=== PATIENT | female | born 1930 | race Caucasian/White ===

== ENCOUNTER → 2016-08-06 | Outpatient (CLI) | payer OTHER, MEDICARE ==
[~2016-08-06] VITALS: Ht 167.6 cm; Wt 89.2 kg
[~2016-08-06] MED LIST: ACETAMINOPHEN325 M1 PO; ALDACTONE25 MG PO; AMLODIPINE BESY10 MG PO; ANTIVERT25 MG PO; BENICAR PO; BENICAR20 MG PO; BYSTOLIC 5 MG5 M1 PO; CIPROFLOXACIN500 M1 PO; CLEOCIN HCL150 MG PO; COLAZAL750 M1 PO; DEMADEX10 MG PO; DEXILANT60 MG PO; DOXYCYCLINE 10100 MG PO; EDARBI40 MG PO; INDERAL LA120 M1 PO; INDERAL LA160 MG PO; LEVOTHYROXIN0.088 MG PO; LIPITOR10 MG PO; MACROBID 100 M100 M1 PO; MECLIZINE 25 MG25 M1 PO; MEPROBAMATE 40400 MG PO; MOTION RELIEF25 MG PO; NORCO 5-325 TA1 EACH PO; NORVASC10 MG PO; NORVASC5 MG PO; OMEGA-3 + VITA1 EAC1 PO; OMEPRAZOLE PO; PROBIOTIC1 EACH PO; SYNTHROID100 MCG PO; SYNTHROID125 MCG PO; SYNTHROID75 MCG PO; TRIBENZOR 40-11 EAC1 PO; TYLENOL325 MG PO; VALIUM5 MG PO; VANTIN PO; XANAX 0.25 MG0.25 MG PO; ZOFRAN4 MG PO; [UNRECOGNIZED DRUG - CODE] GT; [UNRECOGNIZED DRUG - OTHER]; [UNRECOGNIZED DRUG - OTHER] PO
--- NOTE | ~2016-08-06 | H ---
[facility] [place] [address] HISTORY AND PHYSICAL Name: JACOB CHAWLA Nimo Room #: REG MARYSEHeladio Wang#: [id number] Admission: 08/06/16 Attend Phys: David Jiménez MD Discharge: Date of : 32 Report #: [id number] THIS REPORT FOR: //name// CC: Jose M Jiménez DATE OF SERVICE: 08/06/2016 REASON FOR VISIT: Followup visit for a right lumbar radiculopathy. The patient returns to pain clinic today, would like to have transforaminal injection. She has reported once again, that she has had over 90% pain relief for over 3 months. The pain is now returning in the L4-L5 distribution. Chart reflection shows that she has had intermittent transforaminal epidural injections dating back through 2006. She has always responded. She has never had an injection, where she says her pain relief is not measured in months. This has allowed her to avoid stronger pain medication, which she is appreciative of. We spent some time today counseling a bit. Her has senile dementia. Still recognizes family, but his short-term memory is really poor. He recently went up to [facility] to have his hip replaced and is now in $7000 per month, apartment rehabilitation. She has supportive family, but is very difficult to watch her of 60 years, go through these end of life changes. He is not dying, but he is certainly suffering with some of the difficult problems of aging, and this is hard for her. MEDICATIONS: Reviewed and reconciled. There have been no changes since last visit. She is not on a blood thinner. On physical exam, she cried a little bit today and was emotional during our discussion. Her blood pressure is 159/98, heart rate is 73, respirations are 14. She walks with mild antalgic features and has a straight leg raising pain, following the L4-L5 distribution on the right. IMPRESSION: 1. Chronic intractable low back pain with radiculopathy, right L4-L5 distribution. 2. Situational depression. PLAN: Transforaminal epidural injection at L4-L5 on the right under fluoroscopic guidance. PROCEDURE NOTE: He was taken to the fluoroscopic suite, placed prone, skin prepped with chloraprep. Skin was anesthetized over the L4-L5 neural foramen. [address] [address] HISTORY AND PHYSICAL Name: JACOB CHAWLA Nimo Room #: REG CLHeladio Wang#: [id number] Admission: 08/06/16 Attend Phys: David Jiménez MD Discharge: Date of : 32 Report #: [id number] Using the triplanar fluoroscopic views, I advanced the needle into the neural foramen. 1 mL of Omnipaque was demonstrating an excellent epidurogram and spread of the dye along the L4 nerve root, then followed by 3 mL of 0.5% lidocaine, mixed with 80 mg of triamcinolone. She tolerated the procedure well and was observed for 45 minutes and discharged. Followup visit planned as needed. By: 1316 1434 David Jiménez MD /nt
[2016-08-06 12:35] VITALS: BP 159/98
== END ==
LOC: PAIN 06:34
DX: M54.16 Radiculopathy, lumbar region (principal); G89.29 Other chronic pain; F32.9 Major depressive disorder, single episode, unspecified

== ENCOUNTER 2016-10-08 10:01 | Inpatient (IN) | payer OTHER, MEDICARE ==
[~2016-10-08] VITALS: Ht 172.7 cm; Wt 87.6 kg
--- NOTE | ~2016-10-08 | EKG ---
[address] [place] [address] ELECTROCARDIOGRAM REPORT Name: JACOB CHAWLA Room #: 212-P ADM IN M.R.#: [id number] Admission: 10/08/16 Attend Phys: Thomas Lainez DO Discharge: Date of : 32 Report #: [id number] THIS REPORT FOR: //name// [facility] ED Test Date: 2016-10-08 Test Time: 10:16:10 Pat Name: JACOB CHAWLA Department: Room: [facility] Gender: F Leaflet Distributor: DANIEL : 1930 Requested By: See Brown Order Number: [id number] MD: Dallas ePng Measurements Intervals [place] Rate: 73 P: 49 FL: 184 QRS: -45 QRSD: 152 T: 128 QT: 425 QTc: 469 Interpretive Statements Sinus rhythm Left bundle branch block Compared to ECG 10/03/2016 20:48:46 Left bundle-branch block now present Electronically Signed On 10-10-2016 7:06:34 CDT by Dallas Peng [email or web address] <ELECTRONICALLY SIGNED> By: Dallas Peng MD, [facility] 10/10/16 0706 1016 1016 Dallas Peng MD, [facility] /EPI
--- NOTE | ~2016-10-08 | HC ---
[facility] [place] [address] CONSULTATION Name: JACOB CHAWLA Room #: 212-P ADM IN M.R.#: [id number] Admission: 10/08/16 Attend Phys: Thomas Lainez DO Discharge: Date of : 32 Report #: [id number] THIS REPORT FOR: //name// CC: Thomas Caldwell DATE OF SERVICE: 10/08/2016 HISTORY OF PRESENT ILLNESS: The patient is an 86-year-old female admitted for some recurrent vertigo, weakness, dizziness. She has had this intermittently. This even had been seen by [facility] before and has had exercises for this, but apparently became worse over the weekend. I had increased her Benicar from 20-40 when I saw her a week ago. She has an old left bundle-branch block, but for some reason was under the assumption that this was a new left bundle, this has been previously documented clearly in the records and in my office. She has had a recent echo Doppler that was done in July of this year. Ejection fraction was normal. PA pressure was 35, mild MR and TR. Normal atrial size. She had carotid Dopplers done here today, which did not show any evidence of significant disease and in fact also had an MRI of her head. She is really voicing minimal complaints tonight. There has been no associated chest pain or shortness of breath. The MRI shows nothing acute and chronic small vessel ischemic changes with some progression. Chest x-ray was also relatively unremarkable. LABORATORY DATA: Sodium 135, potassium 3.7, creatinine 0.9, glucose 120. Troponin is negative and there is no way we should be doing serial troponins here. There is no evidence of complaints of chest pain. We will cancel the last troponin. H and H was 13 and 38, white count 3.8, platelets 172. Keep referencing the new left bundle, I want to clarify there was not a new bundle. SOCIAL HISTORY: She lives independently. No current alcohol or tobacco. She has six children. ALLERGIES: ASPIRIN, CIPRO, BACTRIM, OXYCODONE, PROCHLORAZINE, CODEINE, MORPHINE, COMPAZINE, FEXOFENADINE. PAST MEDICAL HISTORY: Positive for hypertension, hypercholesterolemia, strep pneumo, history of migraines, prior colon cancer, appendectomy, knee surgery, hysterectomy, thyroidectomy. FAMILY HISTORY: Mother had a stroke. Sister with ovarian cancer and another sister with lung cancer. REVIEW OF SYSTEMS: Essentially negative except for stated above. HOME MEDICATIONS: Xanax, amlodipine 5 b.i.d., atorvastatin 10, , Dexilant, [address] [address] CONSULTATION Name: CHAWLANOEJACOB Room #: 212-P [facility] IN M.R.#: [id number] Admission: 10/08/16 Attend Phys: Thomas Lainez DO Discharge: Date of : 32 Report #: [id number] diazepam, Synthroid, Benicar 20 recently increased to 40, now back down to 25. PHYSICAL EXAMINATION: VITAL SIGNS: Pulse is currently 60, blood pressure 140/76. HEENT: Eyes reveal xanthelasmas. There is some mild arcus senilis. Pharynx is clear. NECK: Shows preserved upstrokes without JVD or bruits. LUNGS: Clear. CARDIOVASCULAR: Regular rate and rhythm, S1, S2. Split second heart sound, faint holosystolic murmur. ABDOMEN: Soft. No HSM or abdominal bruit. EXTREMITIES: Reveal trace of edema. Pulses diminished. NEUROLOGIC: Nonfocal. SKIN: Warm and dry without xanthoma or ulcer. MUSCULOSKELETAL: No gross joint deformity, generalized valgus deformity of the knees. ASSESSMENT: 1. Recurrent vertigo. 2. Generalized weakness. 3. Hypertension. 4. Hypercholesterolemia. RECOMMENDATIONS AND PLAN: The carotid Doppler is negative. MRI is not showing any new finding. She is in sinus rhythm with left bundle-branch block. This is previously noted. There is no ischemic event here. The troponins are negative x2 or 3. We will discontinue any further troponins. A recent echo was done. I do not recommend any current cardiovascular testing. We will hold on Benicar and cut the amlodipine to 5, let this blood pressure trend higher and see if she feels better, although I think it is not related to her Benicar dosage. But, I would accept 140-150 systolic in the setting and going forward. I do not recommend any further cardiovascular testing. Hopefully, we can get her up and get some exercises perhaps Erika maneuver for the vertigo and continue to keep her moving. We will follow with you, does not appear to be any overt infection or heart failure issues here. Thank you for allowing us to assist in her care. By: 2246 [id number] Carlos Enrique Siu MD, FACC /nt
--- NOTE | ~2016-10-08 | HC ---
[facility] [place] [address] CONSULTATION Name: JACOB CHAWLA Room #: 212-P ADM IN M.R.#: [id number] Admission: 10/08/16 Attend Phys: Thomas Lainez DO Discharge: Date of : 32 Report #: [id number] THIS REPORT FOR: //name// CC: Thomas Caldwell MD GASTROENTEROLOGY CONSULTATION REASON FOR CONSULTATION: The patient is an 86-year-old woman who was admitted with dizziness, but has a history of colon cancer and ulcerative colitis. HISTORY OF PRESENT ILLNESS: This 86-year-old woman was admitted on this occasion with nausea and dizziness and she is currently undergoing evaluation and treatment for those problems. She does have a history of colitis. She knows very few details, but she has been on for many years. She reports that she generally as well have diarrhea or rectal bleeding and actually has more problems with constipation. She does take laxatives from time to time. In addition, there is a history of colon cancer. Her last colonoscopy was several years ago. She sees Dr. Salomón Rosario and was told that this October, she would need a followup colonoscopy. PAST MEDICAL HISTORY: Ulcerative colitis. I do not know the extent of her disease, although there is an old note in the computer that mentions a proctitis. She has hypothyroidism, on thyroid replacement. She has had nausea and dizziness in the past. She has been treated for orthostatic hypotension. She has been treated for elevated lipids and high blood pressure. She has been treated for reflux with Dexilant, which has done a good job for her. PAST SURGICAL HISTORY: She had colon resection 60 years ago for bleeding. She had a previous hysterectomy, a colon cancer surgery and also has had knee surgery and breast biopsy. ALLERGIES: Extensive and include ASPIRIN, CIPROFLOXACIN, CEFPODOXIME, FEXOFENADINE, MESALAMINE, AUGMENTIN, TRIMETHOPRIM, AMOXICILLIN, METOCLOPRAMIDE, OXYCODONE, PROCHLORPERAZINE, PROMETHAZINE, TRAMADOL, CODEINE, MORPHINE and SULFAMETHOXAZOLE. MEDICATIONS: Usual home medicines include acetaminophen, amlodipine, atorvastatin, balsalazide, dexlansoprazole which is Dexilant, levothyroxine, meclizine and olmesartan. FAMILY HISTORY: Sister had brain cancer, another sister had ovarian cancer colon cancer. [address] [address] CONSULTATION Name: JACOB CHAWLA Room #: 212-P [facility] IN .R.#: [id number] Admission: 10/08/16 Attend Phys: Thomas Lainez DO Discharge: Date of : 32 Report #: [id number] SOCIAL HISTORY: Does not smoke and does not use much alcohol. REVIEW OF SYSTEMS: GENERAL: No change in weight, fever or chills. CENTRAL NERVOUS SYSTEM: Recent dizziness, vertigo and nausea. ENT: No change in vision or hearing. No sores in the mouth. PULMONARY: No cough, pneumonia or tuberculosis. CARDIOVASCULAR: No chest pain, chest tightness or palpitations. She was treated for high blood pressure. GASTROINTESTINAL: Nausea, not vomiting, constipation and colitis. GENITOURINARY: Without dysuria or pyuria. GYNECOLOGIC: Breast biopsy for benign lesion and previous hysterectomy. MUSCULOSKELETAL: Back pain. She was seen in the pain clinic. SKIN: Without rashes. PSYCHIATRIC: No depression, anxiety or bipolar illness. ENDOCRINE: She is treated for thyroid disease. HEMATOLOGIC: Colon cancer. PHYSICAL EXAMINATION: GENERAL: Well-developed, well-nourished, obese woman in no acute distress. She looks uncomfortable from her nausea. VITAL SIGNS: Blood pressure 147/80. HEENT: Anicteric. Pupils equal and round. Oropharynx is clear. NECK: Supple. CHEST: Clear. HEART: Regular rate and rhythm. Normal S1 and S2. ABDOMEN: Obese. Normal bowel sounds. Soft and nontender, without hepatosplenomegaly or masses. RECTAL: Not done. EXTREMITIES: With trace bilateral pedal edema. NEUROLOGIC: Oriented to person, place and time. Moves all 4 extremities well. LABORATORY DATA: White count of 5.2, hemoglobin of 12.3, MCV 89 and platelet count 165,000. Electrolytes unremarkable. LFTs are normal. Albumin 3.4. ASSESSMENT: 1. History of colon cancer. 2. Chronic colitis. 3. Nausea. 4. Vertigo. 5. High blood pressure. 6. Hypothyroidism. 7. Constipation. COMMENT: Discussed with the patient. I agree with the role of colonoscopy. However, this can be done as an outpatient after she has been treated for [address] [address] CONSULTATION Name: JACOB CHAWLA Room #: 212-P [facility] IN M.R.#: [id number] Admission: 10/08/16 Attend Phys: Thomas Lainez DO Discharge: Date of : 32 Report #: [id number] vertigo. RECOMMENDATIONS: 1. Colonoscopy can be done as an outpatient. 2. MiraLax for constipation. 3. If she develops specific symptoms such as diarrhea or rectal bleeding, colonoscopy could be completed for these symptoms while in the hospital. <ELECTRONICALLY SIGNED> By: Jose M Gómez MD 10/09/16 1544 1332 1414 Jose M Gómez MD /nt
--- NOTE | ~2016-10-08 | S ---
[facility] [place] [address] SURGICAL PATH RPT PROCEDURE Name: NU CRENSHAW Room #: 212-P DIS IN M.R.#: [id number] Admission: 10/08/16 Date of : 32 Discharge: 10/10/16 Report #: [id number] Path Case #: [id number] PATHOLOGY REPORT COLLECTION DATE: 10/10/2016 RECEIVED DATE: 10/10/2016 SUBMITTING PHYS: Dr. Eugenie Sandoval OTHER PHYS: Dr. Thomas Caldwell SPECIMEN(S) RECEIVED: A.Random colon bx at 70 cm B.Bx of polyp at 65 cm C.Random colon bx at 20 cm * * * * * * * * * * * * FINAL DIAGNOSIS: A. Large intestine, random at 70 cm, endoscopic biopsy: - Quiescent colitis, history of colitis. - Negative for dysplasia or malignancy. B. Polyp, at 65 cm, endoscopic biopsy: - Tubular adenoma. - Negative for high-grade dysplasia. C. Large intestine, random at 20 cm, endoscopic biopsy: - Mild focal active cryptitis along with reactive changes, history of colitis. (please see comment) - Negative for dysplasia or malignancy. COMMENT: Examination of the "random colon at 20 cm" biopsy tissue shows numerous macrophages within the lamina propria along with an increased cellularity which includes lymphocytes, plasma cells, as well as rare eosinophil. An occasional focus of cryptitis is present. There are no crypt abscesses, foci of surface epithelial inflammation or ulceration or granulomata identified. Occasional crypts show branching as well as hyperplastic changes consistent with reactive changes. The provided history of colitis is noted. Overall, findings are suggestive of a resolving mild chronic active colitis. There is no dysplasia or malignancy present. (IUV:mgr; 10/12/2016) PATHOLOGIST: Shruthi Cadena M.D. REPORT ELECTRONICALLY SIGNED BY: Shruthi Cadena M.D. DATE/TIME: 10/12/2016 14:29 * * * * * * * * * * * * [address] [address] SURGICAL PATH RPT PROCEDURE Name: NU CRENSHAW Room #: 212-P [facility] IN M.R.#: [id number] Admission: 10/08/16 Date of : 32 Discharge: 10/10/16 Report #: [id number] Path Case #: [id number] GROSS PATHOLOGY: A. Received in formalin labeled "Nu Crenshaw random BX at 70 cm," are 2 segments of juárez soft tissue measuring 0.9 x 0.2 x 0.2 cm in aggregate dimensions and ranging from 0.4 to 0.5 cm in maximum dimension. The specimen is submitted entirely in cassette A1. B. Received in formalin labeled "Nu Crenshaw BX of polyp at 65 cm," is a segment of juárez soft tissue measuring 0.3 x 0.2 x 0.2 cm in maximum dimension. The specimen is submitted entirely in cassette B1. C. Received in formalin labeled "Nu Crenshaw R, random colon BX at 20 cm," are 2 segments of juárez soft tissue measuring 0.7 x 0.2 x 0.2 cm in aggregate dimensions and ranging from 0.3 to 0.4 cm in maximum dimension. The specimen is submitted entirely in cassette C1. (JUAN; 10/11/2016) CLINICAL HISTORY: History of cancer, colitis INITIAL CPT CODE(S): A; 38795 B; 42887 C; 92185 Professional services performed by [facility] at [facility] [address], [place] [address] Technical services performed by [facility] at [address] [place] [address], [address], [place] [address]. [facility] [address] [place] [address] PHONE: [phone] DIRECTOR: Harvinder Joshi M.D. * * * END OF REPORT * * *
[2016-10-08 10:03] VITALS: BP 152/84
[2016-10-08 10:42] LABS: ABSOLUTE NEUTROPHILS 2.5 thou/uL (1.4-8.2); BASOPHILS 0.5 % (0.0-2.0); EOSINOPHILS 0.3 % (0.0-3.0); HEMATOCRIT 38.2 % (37.0-47.0); HEMOGLOBIN 13.3 gm/dL (12.0-15.0); LYMPHOCYTES 22.6 % (24.0-44.0); MANUAL DIFF NO; MCH 31.3 pg (26.0-34.0); MCHC 34.7 g/dL (28.0-37.0); MCV 90.2 fL (80.0-100.0); MONOCYTES 8.9 % (1.0-8.0); PLATELET COUNT 172 thou/uL (150-400); POLYS 67.7 % (36.0-66.0); RBC 4.23 mil/uL (4.20-5.00); RDW 15.2 % (10.5-14.5); WBC 3.8 thou/uL (4.0-11.0)
[2016-10-08 10:54] LABS: ANION GAP 11 mmol/L (7-16); BUN 12 mg/dL (7-18); CALCIUM 9.3 mg/dL (8.5-10.1); CHLORIDE 100 mmol/L (98-107); CO2 24 mmol/L (21-32); CREATININE 0.9 mg/dL (0.6-1.0); GLUCOSE 120 mg/dL (74-106); POTASSIUM 3.7 mmol/L (3.5-5.1); SODIUM 135 mmol/L (136-145)
[2016-10-08 10:55] LABS: URINE BILIRUBIN NEGATIVE (Negative); URINE BLOOD NEGATIVE (Negative); URINE COLOR YELLOW; URINE GLUCOSE-RANDOM* NEGATIVE (Negative); URINE KETONES NEGATIVE (Negative); URINE NITRITE NEGATIVE (Negative); URINE PROTEIN (DIPSTICK) NEGATIVE (Negative); URINE SPECIFIC GRAVITY <= 1.005 (1.003-1.035); URINE UROBILINOGEN 0.2 E.U./dl (0.2-1.0)
[2016-10-08 11:06] LABS: NT-PRO BRAIN NAT PEPTIDE 71 pg/mL (<300); TROPONIN-I < 0.04 ng/mL (<0.04-0.07)
[2016-10-08 13:51] VITALS: BP 179/73
[2016-10-08 16:15] VITALS: BP 190/120
[2016-10-08 18:39] VITALS: BP 124/64
[2016-10-08 20:29] VITALS: BP 143/76
[2016-10-09] VITALS (8 sets, daily range): BP systolic 115–155; BP diastolic 60–80
[2016-10-09 03:46] LABS: HEMATOCRIT 34.3 % (37.0-47.0); HEMOGLOBIN 12.3 gm/dL (12.0-15.0); MCH 32.2 pg (26.0-34.0); MCHC 35.9 g/dL (28.0-37.0); MCV 89.5 fL (80.0-100.0); RBC 3.83 mil/uL (4.20-5.00); RDW 14.9 % (10.5-14.5); WBC 5.2 thou/uL (4.0-11.0)
[2016-10-09 03:54] LABS: ALBUMIN 3.4 g/dL (3.4-5.0); CALCIUM 8.4 mg/dL (8.5-10.1); TOTAL BILIRUBIN 0.5 mg/dL (<0.1-1.0); TOTAL PROTEIN 6.4 g/dL (6.4-8.2)
[2016-10-10 03:35] VITALS: BP 119/64
[2016-10-10 07:10] VITALS: BP 158/74
[2016-10-10 11:25] VITALS: BP 137/80
[2016-10-10 15:31] VITALS: BP 107/65
[2016-10-10] MEDS ORDERED: ANTIVERT25 MG PO (15:33)
[2016-10-10] MEDS ORDERED: ONDANSETRON HCL4 M2 PO (15:34)
[2016-10-10 16:55] VITALS: BP 107/65
== END 2016-10-10 18:00 | disposition home or self-care (01) | DRG 149 ==
LOC: ER 10:01 → EROBS 11:21 → 2N 11:21
PROVIDERS: Nurse Practitioner
PROC: 0DBN8ZX Excision of Sigmoid Colon, Via Natural or Artificial Opening Endoscopic, Diagnostic (ICD-10-PCS; principal; 2016-10-10)
PROC: 0DBK8ZX Excision of Ascending Colon, Via Natural or Artificial Opening Endoscopic, Diagnostic (ICD-10-PCS; principal; 2016-10-10)
PROC: 0DBL8ZX Excision of Transverse Colon, Via Natural or Artificial Opening Endoscopic, Diagnostic (ICD-10-PCS; principal; 2016-10-10)
DX: R42 Dizziness and giddiness (principal); I44.7 Left bundle-branch block, unspecified; K57.30 Diverticulosis of large intestine without perforation or abscess without bleeding; D12.3 Benign neoplasm of transverse colon; K52.9 Noninfective gastroenteritis and colitis, unspecified; K59.00 Constipation, unspecified; G43.909 Migraine, unspecified, not intractable, without status migrainosus; I10 Essential (primary) hypertension; E78.00 Pure hypercholesterolemia, unspecified; E89.0 Postprocedural hypothyroidism; K21.9 Gastro-esophageal reflux disease without esophagitis; E66.9 Obesity, unspecified; Z68.29 Body mass index [BMI] 29.0-29.9, adult; Z85.038 Personal history of other malignant neoplasm of large intestine; Z90.49 Acquired absence of other specified parts of digestive tract; Z90.710 Acquired absence of both cervix and uterus; Z88.6 Allergy status to analgesic agent; Z88.1 Allergy status to other antibiotic agents; Z88.5 Allergy status to narcotic agent; Z88.2 Allergy status to sulfonamides; Z88.8 Allergy status to other drugs, medicaments and biological substances; Z82.3 Family history of stroke; Z80.41 Family history of malignant neoplasm of ovary; Z80.1 Family history of malignant neoplasm of trachea, bronchus and lung
CPT/HCPCS: 10081; 62110; 62900; 70005

== ENCOUNTER → 2017-03-14 | Outpatient (CLI) | payer OTHER, MEDICARE ==
[~2017-03-14] VITALS: Ht 167.6 cm; Wt 82.6 kg
[~2017-03-14] MED LIST changes: +LIALDA1.2 GM PO; +ONDANSETRON HCL4 M2 PO; +PRILOSEC 20 MG20 MG PO
--- NOTE | ~2017-03-14 | HPC ---
[facility] [address] [address] PAIN MANAGEMENT CONSULTATION Name: JACOB CHAWLA Room #: REG JESSIE Felipe#: [id number] Admission: 03/14/17 Attend Phys: David Jiménez MD Discharge: Date of : 32 Report #: [id number] THIS REPORT FOR: //name// CC: [facility] physician/PCP MARY Jiménez DATE OF SERVICE: 03/14/2017 Followup visit for lumbar radiculopathy on the right. The patient is here today for a transforaminal epidural injection. She has had these injections on several occasions always receiving months of good pain relief. She was hospitalized this fall. She lost significant amount of weight, has been able to maintain it. Her social life is now built around caring for her and living at the [facility]. She has support of her daughters. One of her daughters is with her today. She reports that she is able to do almost all of her activities of daily living. Pain is generally reduced by about 90%. PQRS documentation: She has some osteoarthritis, particularly in her hips and knees and would like knee injections in the future. Her BMI today was noted at 29.4. She will be watching her diet carefully after her current weight loss. All medications reviewed and reconciled. Her pain today in the clinic is 4-5/10 and will be treated today with epidural injection. She is not considered a fall risk. She does not use tobacco or alcohol. She is following at the [facility] and they manage medications to treat hypertension. PHYSICAL EXAMINATION: She appears more slender, pleasant, alert and oriented, without signs of overmedication. Blood pressure is 179/84, heart rate is 68. She is able to move from sitting to standing position and ambulate without difficulty. She has positive straight leg raising on the right following an L4 distribution. IMPRESSION: Lumbar radiculopathy, L4-L5 on the right. PROCEDURE: Transforaminal epidural injection under fluoroscopic guidance. She proceed, she was taken to fluoroscopic suite, placed prone, skin prepped with ChloraPrep. Skin was anesthetized over the L4-L5 neural foramen. Using triplanar fluoroscopic views, I advanced needle into the neural foramen. No blood or CSF was aspirated. A mL of Omnipaque demonstrated an excellent epidurogram followed by 3 mL of 0.5% lidocaine mixed with 80 mg triamcinolone. [address] [address] PAIN MANAGEMENT CONSULTATION Name: JACOB CHAWLA Room #: REG CL Felipe#: [id number] Admission: 03/14/17 Attend Phys: David Jiménez MD Discharge: Date of : 32 Report #: [id number] She tolerated the procedure well and was observed for 45 minutes and discharged. Follow up as needed. By: 1602 0347 David Jiménez MD /ana
[2017-03-14 10:43] VITALS: BP 173/96
== END | disposition home or self-care (01) ==
LOC: PAIN 06:47
DX: M54.16 Radiculopathy, lumbar region (principal); G89.29 Other chronic pain; Z98.890 Other specified postprocedural states; Z88.2 Allergy status to sulfonamides; Z88.8 Allergy status to other drugs, medicaments and biological substances; Z79.899 Other long term (current) drug therapy

== ENCOUNTER → 2017-04-09 | Outpatient (CLI) | payer OTHER, MEDICARE | LOC: RAD 03:45 | DX: Z12.31 Encounter for screening mammogram for malignant neoplasm of breast (principal) ==

== ENCOUNTER → 2018-02-13 | Outpatient (CLI) | payer OTHER, MEDICARE ==
[~2018-02-13] VITALS: Ht 167.6 cm; Wt 82.4 kg
[~2018-02-13] MED LIST changes: +CULTURELLE1 EACH PO; +ELIQUIS2.5 MG PO; +ESCITALOPRAM OXA5 MG PO; +METOPROLOL TART25 MG PO; +UNICOMPLEX M TA1 TA1 PO
--- NOTE | ~2018-02-13 | HPC ---
[facility] [place] [address] PAIN MANAGEMENT CONSULTATION Name: JACOB CHAWLA Room #: REG MARYSEHeladio Wang#: [id number] Admission: 02/13/18 Attend Phys: David Jiménez MD Discharge: Date of : 32 Report #: [id number] THIS REPORT FOR: //name// CC: FERNANDA Jiménez DATE OF SERVICE: 02/13/2018 CHIEF COMPLAINT: Followup visit for chronic low back pain with radiculopathy. I last saw the patient on 03/14/2017. I had previously seen her at roughly 6-month intervals for treatment of right lumbar radiculopathy and she responded beautifully to transforaminal injections at L4-L5. It has been a very challenging and difficult year. She reports that in the first part of 2018, she developed problems, but she is a bit vague on the timing. It is clear that she was in and out of the hospital for C. diff due to the use of an antibiotic, but I could not understand exactly when the antibiotics were started and for what. Around that time, she was also found to be more fatigued and saw a general forecaster. She was started on amiodarone, presumably for heart failure. Much of this was done at the [facility]. She there began seeing Dr. Fernanda Oquendo in their Gerontology Department and Dr. Oquendo is now her primary care physician. She has also been seen by Dr. Woods at [facility], the [facility] at . Dr. Abel Olivarez remains a confident and long time hospice consultant for Neurology. Her life has changed a bit. She moved from their previous apartment in the [facility] to [facility]. Her has moderate staged dementia and has been admitted to a memory care unit. She lives just above independent care. She sees him daily, but this has obviously been hardship to her. She is now on Eliquis, it was not discontinued today, so she cannot have an injection. I could not clearly understand whether she was on this for coronary artery disease or other issues. She is in a sinus rhythm today. She complains of pain in her back at a level of 3-4, it is as before radiating into the right leg consistent with a lumbar radiculopathy. This has always responded very well to a single transforaminal epidural injection, no more than 2 times per year. PQRS review shows a history of osteoarthritis in hips and knees. She has a BMI of 29.3. Pain intensity is 3-4/10. She is not a fall risk. She is on Eliquis, the blood thinner. She is under treatment for hypertension. She is not on an opioid agreement, nor has she completed an opioid risk tool. She does not smoke. She drinks alcohol socially with family and friends on occasion. [address] [address] PAIN MANAGEMENT CONSULTATION Name: CHAWLANOEJACOBCHENG GOMEZ Room #: REG JESSIE Wang#: [id number] Admission: 02/13/18 Attend Phys: David Jiménez MD Discharge: Date of : 32 Report #: [id number] PHYSICAL EXAMINATION: Blood pressure 138/72, heart rate 69, respirations 16. She has some bruising on her arm, presumably from the Eliquis. These do not appear to be large or worrisome. She is a bit forgetful, more so than I remember just a year ago. She moves from sitting to standing position, ambulates independently, but appears to be a little bit unstable. She does not; however, appear to be a fall risk. Examination of the back reveals mild tenderness, pain with forward flexion and extension. Straight leg raising discomfort on the right. IMPRESSION: Chronic intractable low back pain with radiculopathy. This has always responded well to an L4-L5 transforaminal epidural injection. PLAN: We will schedule her for my followup clinic in a week to 10 days to give her an injection before [place]. She will check with her general forecaster at [facility] before going off of the Eliquis to make sure that they approve. She needs to be off for 3 days prior to the injection. Time of followup visit 25 minutes. By: 1549 2211 David Jiménez MD /nt
[2018-02-13 11:24] VITALS: BP 138/72
== END ==
LOC: PAIN 09:25
DX: M17.0 Bilateral primary osteoarthritis of knee (principal); M54.16 Radiculopathy, lumbar region; M25.461 Effusion, right knee; M25.462 Effusion, left knee; G89.4 Chronic pain syndrome; M25.862 Other specified joint disorders, left knee; M25.861 Other specified joint disorders, right knee

== ENCOUNTER → 2018-02-27 | Outpatient (CLI) | payer OTHER, MEDICARE ==
[~2018-02-27] VITALS: Ht 167.6 cm; Wt 81.7 kg
--- NOTE | ~2018-02-27 | HPC ---
[address] [address] PAIN MANAGEMENT CONSULTATION Name: JACOB CHAWLA Room #: REG JESSIE Wang#: [id number] Admission: 02/27/18 Attend Phys: David Jiménez MD Discharge: Date of : 34 Report #: [id number] THIS REPORT FOR: //name// CC: ALFIE Jiménez DATE OF SERVICE: 02/27/2018 CHIEF COMPLAINT: Followup visit for chronic low back pain with radiculopathy. The patient is here today in the pain clinic for an epidural injection. Pain is bilateral today and it follows an L3-L4 distribution. She has previously had excellent response with transforaminal epidural injection on the right. I told her that today we would split the medication half of it going to the right and half of it going to the left using a transforaminal approach once again at L3-L4. She is here today with her daughter. She was just recently in the office on 02/13/2018. There have been no significant changes since that visit. She does complain a bit today of bilateral knee pain. She was seen by Family Medicine Department at and received bilateral knee injections performed without imaging or ultrasound. She did not receive much benefit. I told her that if necessary in the future, I would be glad to provide the injections for her as she had requested. IMPRESSION: Low back pain with radiculopathy, L4-L5 distribution bilateral. RECOMMENDATION AND PROCEDURE: Epidural steroid injection transforaminal L4-L5 bilateral under fluoroscopic guidance. She was taken to fluoroscopic suite, placed prone, skin prepped with ChloraPrep. Skin anesthetized first on the left. Using triplanar fluoroscopic views, I advanced the needle into the neural foramen and a 0.25 mL Omnipaque injected with good spread of dye observed into the epidural space, was followed by 3 mL of 0.5% lidocaine mixed with 40 mg triamcinolone. She tolerated the procedure well. C-arm was then repositioned to the right and mirror image injection was performed. She tolerated both sides well with no significant discomfort and there were no complications. Pain score was 0 in recovery room at discharge and I will follow up with her on an as needed basis. She can restart her Eliquis tomorrow. By: [id number] 2055 David Jiménez MD /nt
[2018-02-27 09:52] VITALS: BP 142/71
== END | disposition home or self-care (01) ==
LOC: PAIN 08:59
DX: M54.16 Radiculopathy, lumbar region (principal); G89.29 Other chronic pain; Z98.890 Other specified postprocedural states; Z79.01 Long term (current) use of anticoagulants; Z88.2 Allergy status to sulfonamides; Z88.8 Allergy status to other drugs, medicaments and biological substances; Z79.899 Other long term (current) drug therapy

== ENCOUNTER → 2018-04-30 | Outpatient (CLI) | payer OTHER, MEDICARE | LOC: BC 04-14 10:21 | DX: Z12.31 Encounter for screening mammogram for malignant neoplasm of breast (principal) ==

== ENCOUNTER → 2018-07-07 | Outpatient (CLI) | payer OTHER, MEDICARE ==
[~2018-07-07] VITALS: Ht 167.6 cm; Wt 86.5 kg
[2018-07-07 12:29] VITALS: BP 140/65
--- NOTE | 2018-07-07 12:37 | NUR ---
Pain Clinic Assessment: 1. History of Osteoarthritis: Left Lower Extremity Right Lower Extremity History of Rheumatoid Arthritis: 2. Height: 5 ft. 6 in. 167.6 cm. Weight: 190.6 lb. oz. 86.456 kg. Patient's BMI: 30.8 3. Vital Signs: BP: 140/65 Pulse: 60 Resp: 16 Temp: 02 Sat: 97 ECG Mon: 4. Pain Intensity: 6 5. Fall Risk: Dizziness: N Needs help standing or walking: N Fallen in the last 3 months: N Fall risk comments: 6. Patient on Blood Thinner: DESIQUIS 7. History of Hypertension: Y 8. Opioid Therapy greater than 6 weeks: N Opiate Contract Signed: 9. Risk Assessment Tool Provided: JORDY 10. Functional Assessment Tool: 11. Recreational Drug Use: Never Drug Type: Tobacco Use: Never Smoker Tobacco Type: Amount or Packs/day: How Many Years: Alcohol Use: No Frequency: Quant:
--- NOTE | 2018-07-10 12:23 | HPC ---
[facility] [place] [address] [address] PAIN MANAGEMENT CONSULTATION Name: JACOB CHAWLA Room #: REG MARYSEHeladio Wang#: [id number] Admission: 07/07/18 ������������������ Attend Phys: David Jiménez MD Discharge: ������������������ Date of : 34 Report #: [id number] THIS REPORT FOR: //name// CC: Jose M Jiménez DATE OF SERVICE: 07/07/2018 CHIEF COMPLAINT: Followup visit for low back pain with radiculopathy. The patient is here today for 2-level transforaminal epidural injection bilateral L4-L5. She has done exceptionally well with this most recent injection performed for her last in February. She said she had 3 months of almost complete pain relief. She continues to remain active. Her is in the memory unit. She lives just above him. She seems to be well adjusted to her life there and has made friends. She is able to function at a high level caring for herself. She scores her pain as a 6/10 today. It is worse with lifting, sitting for long periods of time. She does release some of her medication with activity, taking a rest, elevating her legs and taking Tylenol Arthritis. She is on no stronger pain medicines. PHYSICAL EXAMINATION: GENERAL: She is a pleasant female with blood pressure of 140/65, heart rate 60, respirations 16. BMI is 30.8. Weight loss is discussed. SOCIAL HISTORY: She denies use of tobacco or alcohol. She is able to move independently from sitting to standing position, ambulates with mild antalgic features. Straight leg raising is positive bilaterally, radiating down the L4-L5 distribution. Sensation is intact. IMPRESSION: Low back pain with radiculopathy, bilateral L4-L5 distribution. PROCEDURE: Transforaminal epidural injection at L4-L5 on the right and left under fluoroscopic guidance. PROCEDURE: After informed consent, she was taken to fluoroscopic suite. She was placed prone, skin prepped with ChloraPrep. Skin anesthetized on the left. A 22-gauge Tuohy epidural needle advanced with triplanar fluoroscopic views into the neural foramen. A 0.25 mL of Omnipaque was injected with an excellent spread of dye noticed in the epidural space followed by 3 mL of 0.5% lidocaine and 40 mg triamcinolone. She tolerated the procedure well. C-arm was then moved to the right and mirror image injection was performed at the right L4-L5 [address] [address] PAIN MANAGEMENT CONSULTATION Name: JACOB CHAWLA Room #: REG CLI Felipe#: [id number] Admission: 07/07/18 ������������������ Attend Phys: David Jiménez MD Discharge: ������������������ Date of : 34 Report #: [id number] neural foramen again using triplanar fluoroscopic views. There were no complications. She tolerated the procedure well and was observed for 45 minutes. Pain score was 0 at discharge. Follow up as needed. MEDICATIONS: For chronic pain, have all been discontinued. She will take Tylenol as needed. ��������������������������������������������� <ELECTRONICALLY SIGNED> ���������������������������������������� By: David Jiménez MD ��������������������������������������������� 07/10/18 1223 1347 0354 David Jiménez MD /nt
== END | disposition home or self-care (01) ==
LOC: PAIN 06-12 06:59
DX: M54.16 Radiculopathy, lumbar region (principal); G89.29 Other chronic pain; Z79.01 Long term (current) use of anticoagulants; Z88.8 Allergy status to other drugs, medicaments and biological substances; Z79.899 Other long term (current) drug therapy; Z88.6 Allergy status to analgesic agent; Z79.82 Long term (current) use of aspirin; Z98.890 Other specified postprocedural states

== ENCOUNTER → 2018-09-08 | Outpatient (CLI) | payer OTHER, MEDICARE ==
[~2018-09-08] VITALS: Ht 167.6 cm; Wt 87.9 kg
[2018-09-08 12:59] VITALS: BP 144/83
--- NOTE | 2018-09-08 13:08 | NUR ---
Pain Clinic Assessment: 1. History of Osteoarthritis: Left Lower Extremity Right Lower Extremity History of Rheumatoid Arthritis: Not Applicable 2. Height: 5 ft. 6 in. 167.6 cm. Weight: 193.8 lb. oz. 87.907 kg. Patient's BMI: 31.3 3. Vital Signs: BP: 144/83 Pulse: 74 Resp: 16 Temp: 02 Sat: 100 ECG Mon: 4. Pain Intensity: 6 5. Fall Risk: Dizziness: N Needs help standing or walking: N Fallen in the last 3 months: N Fall risk comments: 6. Patient on Blood Thinner: TIP 7. History of Hypertension: Y 8. Opioid Therapy greater than 6 weeks: N Opiate Contract Signed: 9. Risk Assessment Tool Provided: JORDY 10. Functional Assessment Tool: 11. Recreational Drug Use: Never Drug Type: Tobacco Use: Never Smoker Tobacco Type: Amount or Packs/day: How Many Years: Alcohol Use: No Frequency: Quant:
--- NOTE | 2018-09-16 17:25 | HPC ---
[facility] [place] [address] PAIN MANAGEMENT CONSULTATION Name: JACOB CHAWLA Room #: REG MARYSEHeladio Wang#: [id number] Admission: 09/08/18 ������������������ Attend Phys: David Jiménez MD Discharge: ������������������ Date of : 34 Report #: [id number] THIS REPORT FOR: //name// CC: Jose M Jiménez DATE OF SERVICE: 09/08/2018 Followup visit for low back pain with radiculopathy. The patient returns to pain clinic today. I am sorry to hear that her in July, he was ill. They were for over 60 years. We discussed his loss and the adjustments that she is making. I have offered my condolences. She has a large supportive family. They have been there for her. She is here today in the pain clinic alone. She comes in complaining of her usual back pain with radiculopathy radiating into the right buttock. Typically epidural injections to provide quite good relief. Last injection was performed in June. This is a bit sooner than I usually see her, but I am sure she has been on her feet a lot through the grieving process and through the . This may have exacerbated the pain. She would like an epidural injection. She has discontinued her Eliquis in anticipation of that injection. All of her pain today is on the right. Typically, it is bilateral and I will perform the injection on the right only. PQRS REVIEW: 1. Positive for significance osteoarthritis involving both of the lower extremities, hips, and knees. She has no history of rheumatoid arthritis. 2. Height is 5 feet 6 inches, weight 193. BMI 31.3. 3. Vital signs: Blood pressure 144/83, heart rate 74, respirations 16, and O2 sat 100. 4. Pain intensity reported at 6/10. 5. She is not a fall risk and has not fallen in the last 3 months. 6. She is on Eliquis, discontinued for 72 hours in anticipation of injection. 7. All medications are reviewed and reconciled. She has hypertension and is under treatment by primary care. She takes Amlodipine 5 mg daily. 8. She does not use opioid medications and has not completed an opioid agreement. 9. She did complete an opioid risk tool and is considered low risk. 10. Functional assessment score is quite low for her as she is not a complaint is 16/70. 11. She denies drug use, tobacco use, and alcohol. [address] [address] PAIN MANAGEMENT CONSULTATION Name: JACOB CHAWLA Room #: REG [facility]#: [id number] Admission: 09/08/18 ������������������ Attend Phys: David Jiménez MD Discharge: ������������������ Date of : 34 Report #: [id number] PHYSICAL EXAMINATION: Pleasant, alert and oriented. She is stable and well oriented. She is usually very upbeat and today remains positive despite her recent loss. She moves independently from sitting to standing, walks with antalgic gait. There is positive straight leg raising pain on the right following an L4-L5 distribution. IMPRESSION: Lumbar radiculopathy, L4-L5. PROCEDURE: Epidural steroid injection under fluoroscopic guidance. DESCRIPTION OF PROCEDURE: She was taken to fluoroscopic suite, placed prone, skin prepped with ChloraPrep. Skin anesthetized over the L4-L5 interspace and the right neural foramen. Using triplanar fluoroscopic views, I advanced needle into the neural foramen. A 1 mL of Omnipaque injected. Good spread of dye observed into the epidural space, was followed by 3 mL of 0.5% lidocaine mixed with 80 mg of triamcinolone. She tolerated the procedure well. She was observed for 45 minutes and discharged. Followup visit planned in the pain clinic on an as needed basis. ��������������������������������������������� <ELECTRONICALLY SIGNED> ���������������������������������������� By: David Jiménez MD ��������������������������������������������� 09/16/18 1725 1820 2323 David Jiménez MD /nt
== END | disposition home or self-care (01) ==
LOC: PAIN 06:49
DX: M54.16 Radiculopathy, lumbar region (principal); M19.90 Unspecified osteoarthritis, unspecified site; Z79.899 Other long term (current) drug therapy; Z88.8 Allergy status to other drugs, medicaments and biological substances

== ENCOUNTER → 2019-12-10 | Outpatient (CLI) | payer OTHER, MEDICARE ==
[~2019-12-10] MED LIST changes: +ELIQUIS5 MG PO; +HYDRALAZINE 10M10 MG PO; +HYDROXYZINE HCL10 M2 PO; +PEPCID20 MG PO
== END ==
LOC: RAD 13:30
PROVIDERS: ATTEND Family Medicine Geriatric Medicine
DX: Z12.31 Encounter for screening mammogram for malignant neoplasm of breast (principal)

== ENCOUNTER → 2019-12-10 | Outpatient (CLI) | payer OTHER, MEDICARE ==
[~2019-12-10] VITALS: Ht 167.6 cm; Wt 71.5 kg
--- NOTE | ~2019-12-10 | HPC ---
[facility] [place] [address] PAIN MANAGEMENT CONSULTATION Name: JACOB CHAWLA Room #: REG JESSIE Wang#: [id number] Admission: 12/10/19 Attend Phys: David Jiménez MD Discharge: Date of : 34 Report #: [id number] THIS REPORT FOR: cc: ALFIE HASSAN MD,David Kaur MD, MD ~ CC: ALFIE Jiménez DATE OF SERVICE: 12/10/2019 Followup visit for chronic low back pain with radiculopathy. The patient returns to pain clinic today for injection. She has not discontinued her anticoagulant and will need to return. She is on Eliquis for coronary artery disease. She is doing reasonably well. She is basically in isolation at [facility] where she lives due to COVID restrictions. We jokingly discussed her visits with physicians as her primary social outing. She has a large supportive family, with 6 children and they are all keeping close eye on her. She is doing well psychologically I think given the passing of her . She is philosophical regarding his passing with dementia and grateful that he is no longer suffering. She remains quite sharp and we had a good discussion. She seems to be able to recall many details of the past, although I did not do a full mini mental exam on her today. She does not appear to have any evidence of a decline or dementia at this time. She denies use of alcohol or tobacco. She takes no opioids. The blood thinner is mentioned. She also has a history of hypertension, which is under treatment and being adjusted by her primary care physician. She has not fallen in the last several months. PHYSICAL EXAMINATION: She is 5 feet 6 inches, BMI is 25.4, blood pressure 153/82, heart rate 66, respirations 18. Pain intensity 6-7/10. It is mostly in her low back and it radiates into the right leg. She has positive straight leg raising there. She has some osteoarthritis and tenderness in both knees and hips. IMPRESSION: 1. Chronic intractable pain with lumbar radiculopathy, which has responded very favorably to epidural injections at L4-5. 2. Osteoarthritis. 3. Hypertension. [facility] [address] [place] [address] PAIN MANAGEMENT CONSULTATION Name: JACOB CHAWLA Room #: REG [facility] Felipe#: [id number] Admission: 12/10/19 Attend Phys: David Jiménez MD Discharge: Date of : 34 Report #: [id number] 4. Coronary artery disease. PLAN: Return for epidural injection next week, off of Coumadin. Procedure has been scheduled, reviewed the procedure, risks and benefits, and she would like to go forward. By: 1412 1523 David Jiménez MD /nt
[2019-12-10 12:28] VITALS: BP 153/82
--- NOTE | 2019-12-10 12:51 | NUR ---
Pain Clinic Assessment: 1. History of Osteoarthritis: Left Lower Extremity Right Lower Extremity History of Rheumatoid Arthritis: Not Applicable 2. Height: 5 ft. 6 in. 167.6 cm. Weight: 157.6 lb. oz. 71.487 kg. Patient's BMI: 25.4 3. Vital Signs: BP: 153/82 Pulse: 66 Resp: 18 Temp: 02 Sat: 100 ECG Mon: 4. Pain Intensity: 6-7 5. Fall Risk: Dizziness: N Needs help standing or walking: N Fallen in the last 3 months: N Fall risk comments: 6. Patient on Blood Thinner: TIP 7. History of Hypertension: Y 8. Opioid Therapy greater than 6 weeks: N Opiate Contract Signed: 9. Risk Assessment Tool Provided: LOW 10. Functional Assessment Tool: 11. Recreational Drug Use: Never Drug Type: Tobacco Use: Never Smoker Tobacco Type: Amount or Packs/day: How Many Years: Alcohol Use: No Frequency: Quant:
== END ==
LOC: PAIN 11-12 13:15
PROVIDERS: ATTEND Anesthesiology Pain Medicine
DX: M54.16 Radiculopathy, lumbar region (principal); I10 Essential (primary) hypertension; M19.90 Unspecified osteoarthritis, unspecified site; I25.10 Atherosclerotic heart disease of native coronary artery without angina pectoris

== ENCOUNTER → 2019-12-17 | Outpatient (CLI) | payer OTHER, MEDICARE ==
[~2019-12-17] VITALS: Ht 167.6 cm; Wt 73.0 kg
[~2019-12-17] MED LIST changes: +HYDRALAZINE 2525 MG PO; +VITAMIN D3 COM1 EACH PO
--- NOTE | ~2019-12-17 | HPC ---
[address] [address] PAIN MANAGEMENT CONSULTATION Name: JACOB CHAWLA Room #: REG JESSIE Wang#: [id number] Admission: 12/17/19 Attend Phys: David Jiménez MD Discharge: Date of : 34 Report #: [id number] CC: ALFIE Jiménez DATE OF SERVICE: 12/17/2019 Followup visit for right L4-L5 transforaminal epidural injection. The patient was seen in consultation on 12/10/2019. She was on her Eliquis and we had to hold off on an injection. She has returned today for a lumbar epidural injection. We have been using transforaminal approach with great success. We will repeat the transforaminal today. Potential benefits and risks have been reviewed in some detail. She is anxious to proceed. There have been no significant changes since her visit just 7 days ago. PROCEDURE: L4-L5 right transforaminal epidural injection. DESCRIPTION OF PROCEDURE: After informed consent, she was taken to the fluoroscopic suite. She was placed prone, skin prepped with ChloraPrep. Skin anesthetized over the L4-L5 neural foramen. Using triplanar fluoroscopic views, I advanced the needle carefully into the epidural space. No paresthesia was identified. After negative aspiration, I injected one 0.25 mL of Omnipaque and an excellent epidurogram was achieved, extending mostly along the right lateral recess, but also crossing midline. It was then followed by 3 mL of 0.5% lidocaine mixed with 80 mg of triamcinolone. She tolerated the procedure well and there were no complications. She was observed in the recovery room for a short time and discharged. Follow up as needed. By: 1533 1611 David Jiménez MD /nt
[2019-12-17 14:46] VITALS: BP 148/83
--- NOTE | 2019-12-17 14:59 | NUR ---
Pain Clinic Assessment: 1. History of Osteoarthritis: Left Lower Extremity Right Lower Extremity History of Rheumatoid Arthritis: Not Applicable 2. Height: 5 ft. 6 in. 167.6 cm. Weight: 161.0 lb. oz. 73.029 kg. Patient's BMI: 26.0 3. Vital Signs: BP: 148/83 Pulse: 79 Resp: 18 Temp: 02 Sat: 100 ECG Mon: 4. Pain Intensity: 4 5. Fall Risk: Dizziness: N Needs help standing or walking: Y Fallen in the last 3 months: N Fall risk comments: 6. Patient on Blood Thinner: DESIQUIS 7. History of Hypertension: Y 8. Opioid Therapy greater than 6 weeks: N Opiate Contract Signed: 9. Risk Assessment Tool Provided: LOW 10. Functional Assessment Tool: 11. Recreational Drug Use: Never Drug Type: Tobacco Use: Never Smoker Tobacco Type: Amount or Packs/day: How Many Years: Alcohol Use: No Frequency: Quant:
== END | disposition home or self-care (01) ==
LOC: PAIN 07:03
PROVIDERS: ATTEND Anesthesiology Pain Medicine
DX: M54.16 Radiculopathy, lumbar region (principal); G89.29 Other chronic pain; Z98.890 Other specified postprocedural states; Z79.899 Other long term (current) drug therapy; Z79.01 Long term (current) use of anticoagulants; Z88.8 Allergy status to other drugs, medicaments and biological substances